=== PATIENT | female | born 1995 | race African-American/Black ===

== ENCOUNTER 2022-04-18 05:20 | Inpatient (IN) ==
[2022-04-18] MEDS ORDERED: BUTORPHANOL 2 MG/ML VIAL IV PRN (05:32)
[2022-04-18] MEDS ORDERED: TRANEXAMIC ACID 1,000 MG in SODIUM CHLORIDE 0.9% 100 ML IV PRN (05:32)
[2022-04-18] MEDS ORDERED: ONDANSETRON 4 MG/2 ML VIAL IV PRN (05:32)
[2022-04-18] MEDS ORDERED: CARBOPROST TROMETHAMINE 250 MCG/ML AMP IM PRN (05:32)
[2022-04-18] MEDS ORDERED: MEPERIDINE 50 MG/1 ML VIAL IV PRN (05:32)
[2022-04-18] MEDS ORDERED: OXYTOCIN/LR 20 UNIT/1,000 ML BAG IV ONE ×2 (05:32→19:30)
[2022-04-18] MEDS ORDERED: METHYLERGONOVINE 0.2 MG/1 ML AMP IM PRN (05:32)
[2022-04-18] MEDS ORDERED: miSOPROStoL 200 MCG TABLET RECTAL PRN (05:32)
[2022-04-18 05:54] LABS: Basophils % 0.3 % (0.0-0.8); Eosinophils # 0.2 10*3/uL (0.0-0.87); Eosinophils % 1.9 % (0.00-10.9); Hemoglobin 12.4 GM/DL (12.0-16.0); Immature Granulocytes Absolute 0.09 #; Lymphocytes # 2.5 10*3/uL (1.4-4.0); Lymphocytes % 26.4 % (21.3-54.2); Mean Corpuscular HGB Conc 32.6 GM/DL (32-36); Mean Corpuscular Volume 85.4 FL (87-102); Mean Platelet Volume 10.6 FL (9.6-12.0); Monocytes # 0.7 10*3/uL (0.11-0.8); Monocytes % 7.7 % (1.7-12.7); Neutrophils % 62.7 % (38.7-73.9); Platelet Count 295 T/CUMM (130-400); Red Blood Count 4.45 MC/CUMM (3.8-5.5); Red Cell Distribution Width 14.7 % (9.3-17.3); White Blood Count 9.4 T/CUMM (4-12)
[2022-04-18] MEDS ORDERED: OXYTOCIN/LR 20 UNIT/1,000 ML BAG IV SCH (06:00)
[2022-04-18] MEDS: LACTATED RINGERS 1,000 ML IV SCH ×2 (06:08→09:51)
[2022-04-18] MEDS ORDERED: hydrOXYzine HCL 25 MG/1 ML VIAL IM PRN (08:39)
[2022-04-18] MEDS ORDERED: diphenhydrAMINE 50 MG/1 ML VIAL IV PRN (08:39)
[2022-04-18] MEDS ORDERED: PROMETHAZINE 25 MG/1 ML VIAL IM PRN (08:39)
[2022-04-18] MEDS ORDERED: NALOXONE 0.4 MG/ML VIAL IV PRN (08:39)
[2022-04-18] MEDS ORDERED: CITRIC ACID/SODIUM CITRATE 30 ML UDCUP PO ONE (08:39)
[2022-04-18] MEDS ORDERED: ePHEDrine 50 MG/ML VIAL IV PRN (08:39)
[2022-04-18] MEDS ORDERED: FAMOTIDINE 20 MG/2 ML VIAL IV ONE (08:39)
[2022-04-18] MEDS ORDERED: fentaNYL 2 MCG/ROPIV 0.2% EPID 100 ML EPIDURAL SCH (09:00)
[2022-04-18] MEDS ORDERED: METHYLERGONOVINE 0.2 MG/1 ML AMP ONE (10:04)
[2022-04-18] MEDS ORDERED: SODIUM CHLORIDE 0.9% 0 ML IV ONE (10:04)
[2022-04-18] MEDS ORDERED: TRANEXAMIC ACID 1,000 MG/10 ML VIAL ONE (10:04)
[2022-04-18] MEDS ORDERED: CARBOPROST TROMETHAMINE 250 MCG/ML AMP IM ONE (10:04)
[2022-04-18] MEDS ORDERED: miSOPROStoL 200 MCG TABLET ONE (10:04)
[2022-04-18 11:02] LABS: Bilirubin,Urine Negative (Negative); Glucose,Urine (UA) Negative (Negative); Ketones,Urine Negative (Negative); Mucus,Urine Occasional /LPF (Occasional); Nitrite,Urine Negative (Negative); Protein,Urine Negative (Negative); RBC,Urine 28 /HPF (0-4); Squamous Epithelial Cell,Urine Occasional /HPF (0-10); Urine Appearance Clear (Clear); Urine Color Yellow (Yellow); Urine Specific Gravity > 1.030 (1.001-1.035)
[2022-04-18 11:03] LABS: Blood, Urine Small mg/dL (Negative)
[2022-04-18 13:02] LABS: Cord Venous Blood HCO3 19.1 MMOL/L; Cord Venous Blood PCO2 43.7 MMHG; Cord Venous Blood PO2 29.4
[2022-04-18] MEDS: IBUPROFEN 800 MG TABLET PO PRN (18:39)
[2022-04-18] MEDS ORDERED: MAGNESIUM HYDROXIDE SUSP 30 ML UDCUP PO PRN (20:13)
[2022-04-18] MEDS ORDERED: ACETAMINOPHEN 500 MG TABLET PO PRN (20:13)
[2022-04-18] MEDS ORDERED: BISACODYL 10 MG SUPP RECTAL PRN (20:13)
[2022-04-18] MEDS ORDERED: LACTATED RINGERS 1,000 ML IV SCH (20:30)
[2022-04-18] MEDS: DOCUSATE SODIUM 100 MG CAPSULE PO SCH (20:56)
[2022-04-19 06:27] LABS: Basophils % 0.2 % (0.0-0.8); Eosinophils # 0.2 10*3/uL (0.0-0.87); Eosinophils % 1.3 % (0.00-10.9); Hematocrit 34.3 VOL% (35.7-47.0); Immature Granulocytes % 0.6 %; Immature Granulocytes Absolute 0.08 #; Lymphocytes # 2.4 10*3/uL (1.4-4.0); Lymphocytes % 19.3 % (21.3-54.2); Mean Corpuscular HGB Conc 32.1 GM/DL (32-36); Monocytes % 7.6 % (1.7-12.7); Platelet Count 252 T/CUMM (130-400); Red Blood Count 3.99 MC/CUMM (3.8-5.5); Red Cell Distribution Width 14.8 % (9.3-17.3); White Blood Count 12.6 T/CUMM (4-12)
[2022-04-19] MEDS: DOCUSATE SODIUM 100 MG CAPSULE PO SCH ×2 (08:40→21:10)
[2022-04-19] MEDS: MULTIVITAMIN (PRENATAL) TABLET PO SCH (08:40)
[2022-04-20] MEDS: IBUPROFEN 800 MG TABLET PO PRN (00:18)
[2022-04-20 09:15] VITALS: BP 133/74
[2022-04-20] MEDS: MULTIVITAMIN (PRENATAL) TABLET PO SCH (09:26)
[2022-04-20] MEDS: DOCUSATE SODIUM 100 MG CAPSULE PO SCH (09:26)
[2022-04-20] MEDS ORDERED: DIPH/TET/ACEL PERT BOOSTER VACCINE 0.5 ML VIAL IM ONE (12:00)
== END 2022-04-20 12:05 | disposition home or self-care (01) | DRG 560 ==
LOC: N.LD 05:20 → N.OB 16:51
PROVIDERS: ADMIT Obstetrics & Gynecology; ATTEND Nurse Practitioner